=== PATIENT | female | born 1960 | race Caucasian/White ===

== ENCOUNTER 2022-07-04 11:16 | Outpatient (CLI) | payer OTHER | END 2022-07-04 11:17 | disposition home or self-care (01) | LOC: BICMAMMO 11:16 | PROVIDERS: ATTEND Family Medicine | DX: Z12.31 Encounter for screening mammogram for malignant neoplasm of breast (principal) | CPT/HCPCS: 77063; 77067 ==

== ENCOUNTER 2023-12-13 11:42 | Inpatient (IN) | payer OTHER ==
[~2023-12-13 11:42] MED LIST: Iopamidol-370 76% 500 ML MDV (1 ML CHARGE) ONE
[2023-12-13] MEDS ORDERED: HYDROmorphone 0.5 MG/0.5 ML SYRINGE ONE ×3 (12:12→15:17)
[2023-12-13 12:22] LABS: #Basophils 0.04 10x3/uL (0.0-0.2); #Eosinphils Less than 0.03 10x3/uL (0.0-0.7); %Basophils 0.4 % (0.0-1.0); %Eosinophils 0.2 % (0.0-10.0); %Neutrophils 82.7 % (42.0-75.0); Hematocrit 39.8 % (36.0-47.0); Mean Corpuscular HGB CONC 32.7 g/dL (32.0-36.0); Mean Corpuscular Hemoglobin 31.3 pg (27.0-31.0); Mean Corpuscular Volume 95.7 fL (78.0-98.0); Mean Platelet Volume 9.4 fL (7.4-10.4); Platelet Count 238 10x3/uL (130-400); RBC Distribution Width 13.2 % (11.5-14.5); Red Blood Cell (RBC) Count 4.16 mill/uL (4.20-5.40)
[2023-12-13 12:47] LABS: BHCG - Serum Negative (NEGATIVE); Pregs Control Background? CLEAR/WHITE (CLR/WHITE); Pregs Control Bar Appear? YES (CONTROL BAR)
[2023-12-13 12:57] LABS: ALT (SGPT) 13 U/L (8-55); AST (SGOT) 16 U/L (5-34); Alkaline Phosphatase 60 U/L (40-110); Anion Gap 16 mmol/L (10-20); BUN (Urea Nitrogen) 26 mg/dL (9.8-20.1); Calc. Creatinine Clearance 0 mL/min (70-130); Calcium 9.2 mg/dL (7.8-10.44); Carbon Dioxide 19 mmol/L (23-31); Chloride 106 mmol/L (98-107); Estimated GFR 89; Globulin 2.8 g/dL (2.4-3.5); Glucose 209 mg/dL (80-115); Lipase 19 U/L (8-78); Potassium 3.3 mmol/L (3.5-5.1); Protein, Total 6.8 g/dL (5.8-8.1); Sodium 138 mmol/L (136-145)
[2023-12-13] MEDS ORDERED: Ipratropium/Albuterol 3 ML NEB NEB PRN (15:11)
[2023-12-13] MEDS ORDERED: hydrALAZINE 20 MG/ML VIAL SLOW IVP PRN (15:11)
[2023-12-13] MEDS ORDERED: HYDROcodone/Acetaminophen 5/325 mg Tablet PO PRN (15:11)
[2023-12-13] MEDS ORDERED: Electrolyte Replacement Protocol 1 EACH FS SCH (15:18)
[2023-12-13] MEDS ORDERED: SUCCINYLCHOLINE/SOD CL,ISO/PF 200 MG/10 ML SYRINGE FS ONE (15:33)
[2023-12-13] MEDS ORDERED: PROPOFOL 20 ML ONE (15:33)
[2023-12-13] MEDS ORDERED: fentaNYL PF 100 MCG/2 ML SYRINGE ONE (15:33)
[2023-12-13] MEDS ORDERED: Midazolam HCl 2 mg/2 ml Vial ONE (15:34)
[2023-12-13] MEDS ORDERED: Lidocaine 1% PF 5 ML VIAL ONE (15:34)
[2023-12-13] MEDS ORDERED: Rocuronium Bromide 10 MG/ML (10ML VIAL) ONE (15:34)
[2023-12-13] MEDS ORDERED: Piperacillin/Tazobactam 3.375 GM VIAL ONE (16:04)
[2023-12-13] MEDS ORDERED: Sodium Chloride 0.9% 100 ML ONE (16:05)
[2023-12-13] MEDS ORDERED: Ketamine In 0.9 % NaCl 50 MG/5 ML SYRINGE ONE (16:26)
[2023-12-13] MEDS ORDERED: Ondansetron PF 4 MG/2 ML Vial ONE (16:54)
[2023-12-13] MEDS ORDERED: Dexamethasone 20 MG/5 ML VIAL ONE (16:54)
[2023-12-13] MEDS ORDERED: HYDROmorphone 2 MG/ML VIAL ONE (17:09)
[2023-12-13] MEDS ORDERED: MINERAL OIL/WHITE PETROLATUM 3.5 GM TUBE ONE (17:16)
[2023-12-13] MEDS ORDERED: SUGAMMADEX SODIUM 200 MG/2 ML VIAL ONE (17:21)
[2023-12-13] MEDS ORDERED: fentaNYL 50 mcg/mL 1 mL Vial ONE ×2 (17:41→18:25)
[2023-12-13] MEDS ORDERED: Ketorolac Tromethamine 30 MG (1 mL) VIAL ONE (18:25)
[2023-12-13] MEDS: Ketorolac Tromethamine 30 MG (1 mL) VIAL IVP SCH (18:30)
[2023-12-13] MEDS: Lactated Ringer's 1,000 ML IV SCH (18:33)
[2023-12-13 20:43] VITALS: BMI 20.9
[2023-12-13] MEDS: Piperacillin/Tazobactam 3.375 GM in Sodium Chloride 0.9% 100 ML IVPB SCH ×2 (20:48→21:45)
[2023-12-13] MEDS: fentaNYL 50 mcg/mL 1 mL Vial SLOW IVP PRN (21:44)
[2023-12-14 05:48] LABS: #Basophils Less than 0.03 10x3/uL (0.0-0.2); #Eosinphils Less than 0.03 10x3/uL (0.0-0.7); %Basophils 0.1 % (0.0-1.0); %Lymphocytes 5.3 % (21.0-51.0); %Monocytes 8.6 % (0.0-10.0); %Neutrophils 85.4 % (42.0-75.0); Hematocrit 35.5 % (36.0-47.0); Hemoglobin 11.5 g/dL (12.0-16.0); Mean Corpuscular HGB CONC 32.4 g/dL (32.0-36.0); Mean Corpuscular Hemoglobin 31.1 pg (27.0-31.0); Mean Corpuscular Volume 95.9 fL (78.0-98.0); Mean Platelet Volume 9.6 fL (7.4-10.4); Platelet Count 229 10x3/uL (130-400); RBC Distribution Width 13.4 % (11.5-14.5)
[2023-12-14 06:12] LABS: Anion Gap 9 mmol/L (10-20); BUN (Urea Nitrogen) 20 mg/dL (9.8-20.1); Calc. Creatinine Clearance 75 mL/min (70-130); Calcium 8.8 mg/dL (7.8-10.44); Carbon Dioxide 26 mmol/L (23-31); Chloride 110 mmol/L (98-107); Estimated GFR 97; Glucose 126 mg/dL (80-115); Potassium 4.3 mmol/L (3.5-5.1); Sodium 141 mmol/L (136-145)
[2023-12-14] MEDS: FLU (Fluarix Triv) TS24-25(6MOS UP)/PF 45 MCG/0.5 ML Syringe IM ONE (09:21)
[2023-12-14] MEDS: Potassium Chloride 20 MEQ TAB PO SCH (09:22)
[2023-12-15] MEDS: Acetaminophen 325 MG TAB PO PRN (00:24)
[2023-12-15] MEDS: Ondansetron PF 4 MG/2 ML Vial IVP PRN (08:00)
[2023-12-15] MEDS: Aspirin/APAP/Caffeine Tab (Excedrin Migraine) PO PRN (10:33)
[2023-12-15] MEDS: Piperacillin/Tazobactam 3.375 GM VIAL ONE (21:22)
[2023-12-15] MEDS: traMADol HCl 50 MG TAB PO PRN (21:22)
[2023-12-16 11:27] VITALS: BP 121/72; TEMP 97.4
== END 2023-12-16 14:38 | disposition home or self-care (01) | DRG 331 ==
LOC: ERS 11:42 → ERHOLD 15:17 → SURG A 20:24
PROVIDERS: ADMIT Surgery; ATTEND Surgery
PROC: 0DB80ZZ Excision of Small Intestine, Open Approach (ICD-10-PCS; principal; 2023-12-13)
DX: K56.609 Unspecified intestinal obstruction, unspecified as to partial versus complete obstruction (principal); Z90.710 Acquired absence of both cervix and uterus
CPT/HCPCS: 36415; 74177; 80048; 80053; 83690; 84703; 85025; 88307; 96374; 96376; A4314; J1100; J1170; J1885; J2250; J2405; J2543; J2704; J3010; J3490; J7120; Q9967